=== PATIENT | male | born 1995 | race African-American/Black ===

== ENCOUNTER 2017-01-08 19:12 | Emergency (ER) | payer OTHER ==
--- NOTE | ~2017-01-08 | CT71 ---
[facility] A Service of [facility] RADIOLOGY TEXT RESULTS PATIENT: POPPY LONG LOCATION: [facility] : [birth year] UNIT #: [id number] AGE: [address]: Richard Lora MD SEX: M ORDER DR: [id number] [facility] [address] [place], [place] [address] [id number] E MR#: [id number] Acc #: [id number] NAME: POPPY LONG : 1995 SEX: M STUDY DATE/TIME: 01/08/2017 19:45 UNIT: [facility] ROOM: STUDY DESCRIPTION: CT Head Wo Contrast Attending Physician: Richard Lora M.D. Ordering Physician: Richard Lora M.D. Primary Care Physician: [facility] MEDICAL IMAGING REPORT This report is preliminary unless electronic signature is present EXAM Head CT without contrast, 01/08/2017 HISTORY Chest pain, abdomen pain today. Patient also lightheaded with loss of consciousness today. TECHNIQUE This CT exam was performed with one or more of the following radiation dose reduction techniques: automatic exposure control, adjustment of mA and/or kV according to patient size, and iterative reconstruction. FINDINGS Axial noncontrast images were obtained from the skull base to the vertex. Ventricular size and configuration are normal. There is no evidence of acute infarct or hemorrhage. There are no extra-axial fluid collections. No mass lesion or mass effect is seen. There are no skull fractures. IMPRESSION Normal noncontrast head CT. Dictated by... Tariq Segovia M.D. THIS IS AN ELECTRONICALLY VERIFIED REPORT Tariq Segovia M.D. at 01/09/2017 10:50 AM [facility]/lisa TD: 01/09/2017 03:28 JOB #: [id number] [facility] A Service of [facility] RADIOLOGY TEXT RESULTS PATIENT: POPPY LONG LOCATION: [facility] : [birth year] UNIT #: [id number] AGE: [address]: Richard Lora MD SEX: M ORDER DR: MEDICAL IMAGING REPORT COPY
--- NOTE | ~2017-01-08 | EKG ---
PATIENT: POPPY LONG UNIT #: [id number] Ventricular Rate: 56 BPM Atrial Rate: 56 BPM P-R Interval: 162 ms QRS Duration: 90 ms Q-T Interval: 400 ms QTC Calculation(Bezet): 386 ms P Bethel: 68 degrees Calculated R Bethel: 76 degrees Calculated T Bethel: 40 degrees Diagnosis Line: Sinus bradycardia Diagnosis Line: Nonspecific ST and T wave abnormality Diagnosis Line: Abnormal ECG Diagnosis Line: No previous ECGs available Diagnosis Line: Confirmed by CHENCHO HOPE MD ([id number]) on Diagnosis Line: 01/09/2017 12:09:22 AM INTERPRETING MD: HERMINIA REINOSO
--- NOTE | ~2017-01-08 | CR72 ---
[facility] A Service of [facility] RADIOLOGY TEXT RESULTS PATIENT: POPPY LONG LOCATION: [facility] : [birth year] UNIT #: [id number] AGE: [address]: Richard Lora MD SEX: M ORDER DR: [id number] [facility] [address] [place], [place] [address] [id number] E MR#: [id number] Acc #: [id number] NAME: POPPY LONG SUKUMAR : 1995 SEX: M STUDY DATE/TIME: 01/08/2017 18:11 UNIT: [facility] ROOM: STUDY DESCRIPTION: CR Chest Single View Portable Attending Physician: Richard Lora M.D. Ordering Physician: Richard Lora M.D. Primary Care Physician: [facility] MEDICAL IMAGING REPORT This report is preliminary unless electronic signature is present EXAM Portable chest, 01/08/2017 HISTORY Chest pain and dizziness and chest congestion beginning 1 hour ago. FINDINGS A single AP portable view of the chest shows both lungs to be clear. The heart is normal in size. The mediastinal contour is normal. No significant bone abnormalities are seen. IMPRESSION Normal portable chest. Dictated by... Tariq Segovia M.D. THIS IS AN ELECTRONICALLY VERIFIED REPORT Tariq Segovia M.D. at 01/09/2017 10:50 AM [facility]/lisa TD: 01/09/2017 00:55 JOB #: [id number] MEDICAL IMAGING REPORT COPY
[2017-01-08 18:33] LABS: BASOPHIL% 0.7 % (0-2.5); EOSINOPHIL# 0.3 X10e3 (0-0.7); EOSINOPHIL% 5.7 % (0.0-7.0); HEMOGLOBIN 15.4 gm/dL (13.0-16.0); LYMPHOCYTE# 1.8 X10e3 (1.0-3.5); LYMPHOCYTE% 36.9 % (17.0-45.0); MEAN CELL VOLUME 87.3 FL (83-96); MEAN CORPUSCULAR HGB CONC 34.3 g/dL (30-36); MEAN PLATELET VOLUME 8.3 FL (6.5-11.5); MONOCYTE# 0.5 X10e3 (0-1.0); MONOCYTE% 10.7 % (3.0-12.0); NEUTROPHIL# 2.3 X10e3 (1.5-7.1); PLATELET COUNT 180 X10e3 (140-420); RED BLOOD COUNT 5.15 X10e (3.90-5.60)
[2017-01-08 18:46] LABS: POC - CKMB <1.0 ng/mL (0.0-7.9); POC - TROPONIN <0.05 ng/mL (<=0.05)
[2017-01-08 18:49] LABS: PARTIAL THROMBOPLASTIN TIME 26.8 SECONDS (23.5-31.3); PROTHROMBIN TIME (PATIENT) 10.4 SECONDS (9.6-11.5)
[2017-01-08 18:55] LABS: DIFF IND NO
[2017-01-08 19:03] LABS: AMPHETAMINE NEG (NEG); BARBITURATES NEG (NEG); BENZODIAZEPINES NEG (NEG); COCAINE NEG (NEG); MARIJUANA POS (NEG); OPIATES NEG (NEG); TRICYCLIC ANTIDEPRESSANTS NEG (NEG); U METHADONE NEG (NEG)
[2017-01-08 19:05] LABS: ALBUMIN SERUM 4.5 g/dL (3.5-5.0); ALKALINE PHOSPHATASE 43 U/L (32-92); ALT (SGPT) 13 U/L (8-36); AST (SGOT) 19 U/L (13-38); BILIRUBIN, DIRECT 0.1 mg/dL (0.0-0.2); BILIRUBIN,INDIRECT 0.8 mg/dL (0.0-0.9); BILIRUBIN,TOTAL 0.9 mg/dL (0.2-2.0); BLOOD UREA NITROGEN 17 mg/dL (9-23); CALCIUM SERUM 9.4 mg/dL (8.4-10.2); CARBON DIOXIDE 28 mmol/L (22-31); CHLORIDE 104 mmol/L (100-111); GLOM FILT RATE Estimated ABOVE60 mL/min (>60); GLUCOSE FASTING 90 mg/dL (70-110); POTASSIUM 3.8 mmol/L (3.5-5.1); PROTEIN TOTAL SERUM 7.7 g/dL (6.0-8.3); SODIUM 139 mmol/L (135-145)
[2017-01-08 19:09] LABS: ALCOHOL BLOOD <5 mg/dL (0)
[2017-01-08 19:28] LABS: INFLUENZA A NEG (NEG); INFLUENZA B NEG (NEG)
[2017-01-08 19:45] LABS: URINE SOURCE CLEAN CATCH
[2017-01-08 19:49] LABS: URINE APPEARANCE CLEAR; URINE BILIRUBIN NEG (NEG); URINE BLOOD NEG (NEG); URINE COLOR YELLOW; URINE GLUCOSE NEG (NEG); URINE KETONE TRACE (NEG); URINE LEUKOCYTE ESTERASE 2+ (NEG); URINE NITRATE NEG (NEG); URINE PH 7.5 (5-8); URINE PROTEIN NEG (NEG); URINE SPECIFIC GRAVITY 1.027 (1.003-1.035)
[2017-01-08 19:52] LABS: CULTURE INDICATED? YES; URINE BACTERIA AUWI NEG (NEGATIVE); URINE SQUAMOUS EPITHELIAL CELL OCC /[HPF]; UWBCS1 AUWI 50-100 (0-5)
[2017-01-08 20:18] LABS: POC - CKMB <1.0 ng/mL (0.0-7.9); POC - TROPONIN <0.05 ng/mL (<=0.05)
[2017-01-11 12:46] LABS: CHLAMYDIA TRACH Detected (Not Detected); N GONOR Not Detected (Not Detected)
== END 2017-01-08 20:35 | disposition home or self-care (01) ==
LOC: CED 19:12
PROVIDERS: Emergency Medicine
DX: F41.0 Panic disorder [episodic paroxysmal anxiety] (principal); N39.0 Urinary tract infection, site not specified; F19.10 Other psychoactive substance abuse, uncomplicated
CPT/HCPCS: 36415; 70450; 71010; 80048; 80076; 80307; 81003; 82553; 84484; 85025; 85610; 85730; 87086; 87491; 87591; 87804; 93005; 96361; 96365; 99284; G0480; J0696